=== PATIENT | female | born 1955 | race Caucasian/White ===

== ENCOUNTER → 2018-08-11 | Outpatient (CLI) | payer OTHER ==
[~2018-08-11] MED LIST: AUGMENTIN 875 M1 TAB PO; CIPROFLOXACIN500 MG PO; CLARITIN10 MG PO; DIFLUCAN150 MG PO; FLONASE 0.05% 121 EA NAS; HYDROCODONE BIT1 T11 PO; MOTRIN800 MG PO; NEXIUM20 MG PO; PYRIDIUM200 MG PO; ULTRAM50 MG PO; VALIUM2 MG PO
[2018-08-11 10:46] LABS: BASO % 0.3 % (0.0-1.0); EOS # 0.1 10*3/uL (0.0-0.4); EOS % 0.7 % (1.0-4.0); HEMOGLOBIN 14.1 g/dl (12.0-16.0); LYMPH # 2.2 10*3/uL (1.3-4.4); LYMPH % 25.3 % (27.0-41.0); MEAN CELL VOLUME 93.2 fl (81.0-99.0); MEAN CORPUSCULAR HGB 29.9 pg (27.0-31.0); MEAN PLATELET VOLUME 9.4 fl (9.6-12.3); MONO # 0.6 10*3/uL (0.1-1.0); MONO % 7.1 % (3.0-9.0); NEUT # 5.8 10*3/uL (2.3-7.9); NEUT % 66.4 % (47.0-73.0); PLATELET COUNT AUTOMATED 277 10*3/uL (130-400); RED BLOOD COUNT 4.72 10*6/uL (4.10-5.10); RED CELL DISTRI WIDTH 14.4 % (0-14.5); WHITE BLOOD COUNT 8.7 10*3/uL (4.8-10.8)
[2018-08-11 11:01] LABS: ALBUMIN 3.6 gm/dl (3.1-4.5); ALKALINE PHOSPHATASE 73 U/L (45-117); BILIRUBIN, DIRECT < 0.1 mg/dL (0.0-0.2); BUN 8 mg/dl (7-24); CHLORIDE 105 mmol/L (98-107); CHOLESTEROL 176 mg/dL (<200); CREATININE 0.64 mg/dL (0.55-1.02); HDL CHOLESTEROL 42 mg/dl (40-60); LDL CHOLESTEROL 121 mg/dL (9-159); POTASSIUM 3.8 mmol/L (3.5-5.1); SGOT/AST 9 IU/L (3-35); SGPT/ALT 12 U/L (12-78); SODIUM 139 mmol/L (136-145); THYROXINE (T4) TOTAL 11.7 ug/dl (4.8-13.9); TOTAL PROTEIN 7.6 gm/dL (6.4-8.2); TRIGLYCERIDES 67 mg/dl (<150); VLDL CHOLESTEROL 13 mg/dL (6-40)
== END | disposition home or self-care (01) ==
LOC: LAB 10:20
PROVIDERS: Family Medicine
DX: J44.9 Chronic obstructive pulmonary disease, unspecified (principal); G90.01 Carotid sinus syncope; F17.200 Nicotine dependence, unspecified, uncomplicated

== ENCOUNTER → 2018-09-08 | Outpatient (CLI) | payer OTHER ==
--- NOTE | ~2018-09-08 | PF ---
[place], [place] PULMONARY FUNCTION TEST NAME: ASHLEE PASTOR UNIT #: [id number] ROOM: DOCTOR: LAURA ANAYA MD,JH BIRTHDATE: [birth year] DOS: 09/08/2018 ORDERED BY: Dr. Gonsalo Edouard. HISTORY: The patient recorded as 63-year-old female, height 67 inches, weight 122 pounds, BMI 19.1. The patient reported a diagnosis of COPD. Tobacco use was noted, 1.5 pack of cigarettes per day for 41 years. SPIROMETRY: The FVC of 2.84 liters as 81% predicted value, FEV1 of 2 liters with a predicted value of FEV1 73%. Ratio of FEV1/FVC recorded post-bronchodilator is 69%. Flow volume loop suggests obstructive lung disease. LUNG VOLUME: Thoracic gas volume recorded as 140%, residual volume 161%, total lung capacity 107% of ascites. RV/TLC ratio of 147%. Air resistance and passive conductance noted mildly normal. Lung diffusion was noted mildly decreased without correction of carbon monoxide and hemoglobin value. FINAL IMPRESSION: Current test suggestive of finding consistent with mild chronic obstructive pulmonary disease. JH SANCHEZ MD CM:PFREPORT:PULMONARY FUNCTION TEST [id number] JH ANAYA MD
== END | disposition home or self-care (01) ==
LOC: CP 12:40
DX: J44.9 Chronic obstructive pulmonary disease, unspecified (principal)

== ENCOUNTER → 2019-09-05 | Outpatient (CLI) | payer OTHER ==
[2019-09-05 14:12] LABS: BASO % 0.5 % (0.0-1.0); EOS % 0.5 % (1.0-4.0); HEMATOCRIT 40.4 % (37.0-47.0); LYMPH # 2.7 10*3/uL (1.3-4.4); LYMPH % 36.5 % (27.0-41.0); MEAN CELL VOLUME 95.3 fl (81.0-99.0); MEAN CORPUSCULAR HGB 31.1 pg (27.0-31.0); MEAN CORPUSCULAR HGB CONC 32.7 g/dl (33.0-37.0); MEAN PLATELET VOLUME 9.3 fl (9.6-12.3); MONO # 0.4 10*3/uL (0.1-1.0); MONO % 5.4 % (3.0-9.0); NEUT # 4.1 10*3/uL (2.3-7.9); NEUT % 56.8 % (47.0-73.0); PLATELET COUNT AUTOMATED 218 10*3/uL (130-400); RED BLOOD COUNT 4.24 10*6/uL (4.10-5.10); RED CELL DISTRI WIDTH 13.6 % (0-14.5); WHITE BLOOD COUNT 7.3 10*3/uL (4.8-10.8)
[2019-09-05 14:28] LABS: ALBUMIN 3.8 gm/dl (3.1-4.5); ALKALINE PHOSPHATASE 58 U/L (45-117); BILIRUBIN, DIRECT < 0.1 mg/dL (0.0-0.2); BUN 10 mg/dl (7-24); CHLORIDE 110 mmol/L (98-107); CHOLESTEROL 218 mg/dL (<200); CREATININE 0.67 mg/dL (0.55-1.02); HDL CHOLESTEROL 44 mg/dl (40-60); LDL CHOLESTEROL 160 mg/dL (9-159); POTASSIUM 3.6 mmol/L (3.5-5.1); SGOT/AST 7 IU/L (3-35); SGPT/ALT 16 U/L (12-78); SODIUM 141 mmol/L (136-145); THYROXINE (T4) TOTAL 8.7 ug/dl (4.8-13.9); TOTAL PROTEIN 7.5 gm/dL (6.4-8.2); TRIGLYCERIDES 69 mg/dl (<150); VLDL CHOLESTEROL 14 mg/dL (6-40)
== END | disposition home or self-care (01) ==
LOC: LAB 13:52
PROVIDERS: Family Medicine
DX: R53.83 Other fatigue (principal); R63.5 Abnormal weight gain

== ENCOUNTER → 2023-06-19 | Outpatient (CLI) | payer OTHER | END | disposition home or self-care (01) | LOC: RAD 10:18 | PROVIDERS: ATTEND Nurse Practitioner | DX: M54.50 Low back pain, unspecified (principal); I70.0 Atherosclerosis of aorta ==